=== PATIENT | male | born 1975 | race African-American/Black ===

== ENCOUNTER 2022-08-21 05:26 | Emergency (ER) | payer OTHER ==
[2022-08-21 05:34] VITALS: BP 169/94; PULSE 74; RESP 16; TEMP 98.5
[2022-08-21] MEDS ORDERED: ONDANSETRON 4 MG/2 ML VIAL IVP STA ×2 (05:36→05:39)
[2022-08-21] MEDS ORDERED: SODIUM CHLORIDE 0.9% 1,000 ML IV STA (05:36)
[2022-08-21] MEDS ORDERED: PANTOPRAZOLE 40 MG/10 ML VIAL IVP STA (05:41)
--- NOTE | 2022-08-21 05:42 | ED ---
General Adult HPI - General Chief complaint: Nausea/Vomiting/Diarrhea Stated complaint: Vomiting Blood Time Seen by Provider: 08/21/22 05:35 Source: patient Mode of arrival: ambulatory - History of Present Illness Initial comments: Dictation was produced using [employer] dictation software. please excuse any grammatical, word or spelling errors. Chief Complaint: 47-year-old male presents emergency department for vomiting and hematemesis History of Present Illness: An is a 47-year-old value sent here from [facility]. According to transfer documentation patient has had acute vomiting with hematemesis. Patient states that he's been very unhappy at [facility] feels like they are not treating him correctly. States that they have not been giving him any medicines treat his withdrawals. Patient states that around 6 PM he started having nausea and vomiting. He states that his emesis has been very bloody. Patient denies any history of esophageal varices. States that he does have some left upper quadrant abdominal pain. Patient was given 4 mg of Zofran from [facility] staff. Patient denies any fever. States that he has been having some black stools. The ROS documented in this emergency department record has been reviewed and c onfirmed by me. Those systems with pertinent positive or negative responses have been documented in the HPI. All other systems are other negative and/or noncontributory. PHYSICAL EXAM: General Impression: Alert and oriented x3, not in acute distress HEENT: Normocephalic atraumatic, extra-ocular movements intact, pupils equal and reactive to light bilaterally, mucous membranes moist. Cardiovascular: Heart regular rate and rhythm Chest: Able to complete full sentences, no retractions, no tachypnea Abdomen: abdomen soft, non-tender, non-distended, no organomegaly Musculoskeletal: Pulses present and equal in all extremities, no peripheral edema Motor: no focal deficits noted Neurological: CN II-XII grossly intact, no focal motor or sensory deficits noted Skin: Intact with no visualized rashes Psych: Normal affect and mood ED course: 47-year-old male is to the emergency department for concerns of acute GI bleed. Nursing notes and chart review was performed Had some emesis at the bedside. There was no noted blood. CBC, metabolic panel and abdominal labs are negative. Patient observed in emergency department for one hour. Nonetheless patient stable. His no high-risk features. His vital signs are stable. Patient will be discharged. Advised follow-up with primary care doctor patient also given a referral to GI specialist. - Related Data Allergies Allergy/AdvReac Type Severity Reaction Status Date / Time amoxicillin Allergy Anaphylaxis Verified 08/21/22 05:35 Review of Systems ROS Statement: Those systems with pertinent positive or pertinent negative responses have been documented in the HPI. ROS Other: All systems not noted in ROS Statement are negative. Past Medical History Smoking Status: Current every day smoker Past Alcohol Use History: Daily Past Drug Use History: Cocaine, Heroin, IV Drug Use, Marijuana, Methamphetamine, Opiates Course Vital Signs 08/21/22 05:28 Temperature 98.5 F Pulse Rate 74 Respiratory 16 Rate Blood Pressure 169/94 O2 Sat by Pulse 100 Oximetry Medical Decision Making - Lab Data Result diagrams: 08/21/22 05:48 08/21/22 05:48 Lab Results 08/21/22 08/21/22 Range/Units 05:48 05:48 WBC 9.4 (3.8-10.6) k/uL RBC 5.54 (4.30-5.90) m/uL Hgb 14.2 (13.0-17.5) gm/dL Hct 44.4 (39.0-53.0) % MCV 80.2 (80.0-100.0) fL MCH 25.6 (25.0-35.0) pg MCHC 31.9 (31.0-37.0) g/dL RDW 14.6 (11.5-15.5) % Plt Count 340 (150-450) k/uL MPV 8.8 Neutrophils % 80 % Lymphocytes % 14 % Monocytes % 4 % Eosinophils % 1 % Basophils % 0 % Neutrophils # 7.6 (1.3-7.7) k/uL Lymphocytes # 1.3 (1.0-4.8) k/uL Monocytes # 0.4 (0-1.0) k/uL Eosinophils # 0.1 (0-0.7) k/uL Basophils # 0.0 (0-0.2) k/uL Hypochromasia Slight Sodium 140 (137-145) mmol/L Potassium 4.3 (3.5-5.1) mmol/L Chloride 106 (98-107) mmol/L Carbon Dioxide 23 (22-30) mmol/L Anion Gap 11 mmol/L BUN 19 (9-20) mg/dL Creatinine 1.09 (0.66-1.25) mg/dL Est GFR (CKD-EPI)AfAm >90 (>60 ml/min/1.73 sqM) Est GFR (CKD-EPI)NonAf 81 (>60 ml/min/1.73 sqM) Glucose 112 H (74-99) mg/dL Calcium 9.6 (8.4-10.2) mg/dL Total Bilirubin 0.5 (0.2-1.3) mg/dL AST 33 (17-59) U/L ALT 29 (4-49) U/L Alkaline Phosphatase 75 (38-126) U/L Total Protein 9.2 H (6.3-8.2) g/dL Albumin 4.5 (3.5-5.0) g/dL Disposition Clinical Impression: Nausea & vomiting Disposition: HOME SELF-CARE Condition: Good Instructions (If sedation given, give patient instructions): Acute Nausea and Vomiting (ED) Is patient prescribed a controlled substance at d/c from ED?: No Referrals: Ramila Russ MD [STAFF PHYSICIAN] - 1-2 days Gregg Centeno MD [REFERRING] - 1-2 days Time of Disposition: 06:24
[2022-08-21 06:09] LABS: Basophils % (A) 0 %; Eosinophils # (A) 0.1 k/uL (0-0.7); Eosinophils % (A) 1 %; HCT 44.4 % (39.0-53.0); HGB 14.2 gm/dL (13.0-17.5); Hypochromasia Slight; Lymphocytes # (A) 1.3 k/uL (1.0-4.8); Lymphocytes % (A) 14 %; MCH 25.6 pg (25.0-35.0); MCHC 31.9 g/dL (31.0-37.0); MCV 80.2 fL (80.0-100.0); Mean Platelet Volume 8.8; Monocytes # (A) 0.4 k/uL (0-1.0); Monocytes % (A) 4 %; Neutrophils # (A) 7.6 k/uL (1.3-7.7); Neutrophils % (A) 80 %; Platelet Count 340 k/uL (150-450); RBC 5.54 m/uL (4.30-5.90); RDW 14.6 % (11.5-15.5); WBC 9.4 k/uL (3.8-10.6)
[2022-08-21 06:19] LABS: ALT 29 U/L (4-49); AST 33 U/L (17-59); African American GFR (CKD) >90 (>60 ml/min/1.73 sqM); Albumin 4.5 g/dL (3.5-5.0); Alkaline Phosphatase 75 U/L (38-126); Anion Gap 11 mmol/L; Blood Urea Nitrogen 19 mg/dL (9-20); Calcium 9.6 mg/dL (8.4-10.2); Carbon Dioxide 23 mmol/L (22-30); Chloride 106 mmol/L (98-107); Glucose 112 mg/dL (74-99); Non-African American GFR(CKD) 81 (>60 ml/min/1.73 sqM); Potassium 4.3 mmol/L (3.5-5.1); Sodium 140 mmol/L (137-145); Total Bilirubin 0.5 mg/dL (0.2-1.3); Total Protein 9.2 g/dL (6.3-8.2)
== END 2022-08-21 06:56 | disposition home or self-care (01) ==
LOC: EC 05:26
DX: R11.2 Nausea with vomiting, unspecified (principal); F17.200 Nicotine dependence, unspecified, uncomplicated; F12.90 Cannabis use, unspecified, uncomplicated; F11.20 Opioid dependence, uncomplicated; F14.90 Cocaine use, unspecified, uncomplicated; Z79.2 Long term (current) use of antibiotics; Z88.0 Allergy status to penicillin
CPT/HCPCS: 36415; 80053; 85025; 99284; 96374; 96375; 96361 ×4; J2405; C9113